=== PATIENT | male | born 1985 | race Caucasian/White ===

== ENCOUNTER 2018-11-09 10:38 | Emergency (ER) | payer OTHER ==
[~2018-11-09] VITALS: Ht 172.7 cm; Wt 77.5 kg
[2018-11-09 10:41] VITALS: BP 158/84; PULSE 112; RESP 18; Ht 172.7 cm; Wt 77.5 kg
[2018-11-09] MEDS ORDERED: ONDANSETRON (ODT) 4 MG TAB ODT STA (11:00)
[2018-11-09] MEDS ORDERED: ONDA8TAB14 PO (11:29)
--- NOTE | 2018-11-09 11:33 | ERD ---
ER Documentation Chief Complaint Chief Complaint NAUSEA, DIZZINESS AND LIGHTHEADEDNESS; FEELS STRESSED HPI 32-year-old male presents with nonspecific lightheadedness and nausea over the last day. He denies fevers, sore throat, cough, chest pain, shortness of breath, abdominal pain, urinary complaints, additional symptoms. Patient admits he may be stressed. There is mild nausea without vomiting. ROS All systems reviewed and are negative except as per history of present illness. Medications Home Meds Active Scripts Ondansetron (Ondansetron Odt) 8 Mg Tab.rapdis, 8 MG PO Q6H PRN for NAUSEA AND/OR VOMITING, #18 TAB Prov:AVIS LIN MD 11/09/18 FmHx Family History: No diabetes, No coronary disease, No other Physical Exam Vitals Vital Signs Date Temp Pulse Resp B/P (MAP) Pulse Ox O2 O2 Flow FiO2 Time Delivery Rate 11/09/18 97.0 112 18 158/84 97 10:41 (108) Physical Exam Const: No acute distress Head: Atraumatic Eyes: Normal Conjunctiva ENT: Normal External Ears, Nose and Mouth. Neck: Full range of motion. No meningismus. Resp: Clear to auscultation bilaterally Cardio: Regular rate and rhythm, no murmurs Abd: Soft, non tender, non distended. Normal bowel sounds Skin: No petechiae or rashes Back: No midline or flank tenderness Ext: No cyanosis, or edema Neur: Awake and alert Psych: Normal Mood and Affect Results 24 hrs Laboratory Tests Test 11/09/18 11:17 Bedside Glucose 88 mg/dL Current Medications Medications Dose Sig/Chaz Start Time Status Last (Trade) Ordered Route PRN Stop Time Admin Dose Reason Admin Ondansetron 8 mg ONCE STAT 11/09/18 DC 11/09/18 HCl (Zofran ODT 11:00 11:10 Odt) 11/09/18 11:02 Procedures/MDM EKG: Rate/Rhythm: Normal Sinus Rhythm. Rate equals 96 QRS, ST, T-waves: No changes consistent w/ acute ischemia Impression: No evidence of ischemia or arrhythmia. Impression-normal EKG Accu-Chek 88. Patient given Zofran for nausea. Patient presents with sensation of lightheaded and nausea. Started the last day. He is otherwise well-appearing. He does have slightly elevated blood pressure is advised to follow-up with primary doctor for continued recheck. He has no signs or symptoms to suggest endorgan damage, hypertensive emergency, additional concerning signs or symptoms. He will be treated with Zofran, further observation at home and return precautions. Consideration is certainly anxiety or early viral illness but patient advised to return to ER for new or worsening symptoms or primary doctor as directed pending additional new or worsening symptoms. The patient was stable with no new complaints during the ER course. Clinically, there is no current evidence to suggest meningitis, sepsis, acute abdomen, pneumonia, stroke, acute coronary syndrome, pulmonary embolism, aortic dissection or any other emergent condition appearing to require further evaluation or hospitalization. Patient counseled regarding my diagnostic impression and care plan. Prior to discharge all questions answered. Pt agrees with treatment plan and understands strict return precautions. Pt is instructed to follow up with primary care provider within 24- 48 hours. Precautionary instructions provided including instructions to return to the ER if not improving or for any worsening or changing symptoms or concerns. Departure Diagnosis: Primary Impression: Dizzy Additional Impression: Mild nausea Condition: Stable Patient Instructions: Dizziness, Unk Cause, Hypertension, To Be Confirmed Additional Instructions: Examinations normal today. Uncertain cause of symptoms. Consider early viral illness or stress as cause. Recheck for fevers, shortness of breath, abdominal pain, new worsening symptoms. AVIS LIN MD Nov 09, 2018 11:33
== END 2018-11-09 11:44 | disposition home or self-care (01) ==
LOC: FTE 10:38
DX: R42 Dizziness and giddiness (principal); R11.0 Nausea
CPT/HCPCS: 82962; 93005; Z7502; Z7610